=== PATIENT | male | born 1955 | race Caucasian/White ===

== ENCOUNTER 2018-06-04 11:44 | Inpatient (IN) | payer OTHER ==
[2018-06-04 13:02] VITALS: BMI 25.8
--- NOTE | 2018-06-04 16:01 | HP ---
CIWA Score - CIWA Score Nausea/Vomitin Muscle Tremors: 3 Anxiety: 3 Agitation: 3 Paroxysmal Sweats: 1-Minimal Palms Moist Orientation: 0-Oriented Tacttile Disturbances: 2-Mild Itch/Numbness/Burn Auditory Disturbances: 2-Mild Harshness/Frighten Visual Disturbances: 0-None Headache: 2-Mild CIWA-Ar Total Score: 19 Admission ROS [facility] - HPI Chief Complaint: i need help to stop drinking alcohol Allergies/Adverse Reactions: Allergies Allergy/AdvReac Type Severity Reaction Status Date / Time No Known Allergies Allergy Verified 06/04/18 15:27 History of Present Illness: this 63 years old male with alcohol dependence,seeking detox,withdrawal symptom, never been in detox before, syncope alcohol related hepatitis c treated low back pain nicotine dependence weight loss insomnia - Ebola screening Have you traveled outside of the country in the last 21 days: No Have you had contact with anyone from an Ebola affected area: No Have you been sick,other than usual withdrawal symptoms: No Do you have a fever: No - Review of Systems Constitutional: Loss of Appetite, Malaise, Night Sweats, Changes in sleep, Weakness, Unexplained wgt Loss EENT: reports: Nose Congestion Respiratory: reports: No Symptoms reported Cardiac: reports: Palpitations GI: reports: Diarrhea, Nausea, Vomiting, Abdominal cramping : reports: No Symptoms Reported Musculoskeletal: reports: Back Pain, Muscle Pain Integumentary: reports: Dryness Neuro: reports: Headache, Tremors Endocrine: reports: No Symptoms Reported Hematology: reports: No Symptoms Reported Psychiatric: reports: No Sypmtoms Reported, Judgement Intact, Mood/Affect Appropiate, Anxious (insomnia) Patient History - Patient Medical History Hx Anemia: No Hx Asthma: No Hx Chronic Obstructive Pulmonary Disease (COPD): No Hx Cancer: No Hx Cardiac Disorders: No Hx Hypertension: No Hx Pacemaker: No HX Cerebrovascular Accident: No Hx Seizures: No Hx Diabetes: No Hx Gastrointestinal Disorders: No Hx Liver Disease: No Hx Genitourinary Disorders: No Hx Sexually Transmitted Disorders: No Hx Renal Disease (ESRD): No Hx Thyroid Disease: No Hx Human Immunodeficiency Virus (HIV): No (last 2014) Hx Hepatitis C: Yes (treated) Hx Depression: No Hx Suicide Attempt: No Hx Bipolar Disorder: No Hx Schizophrenia: No Other Medical History: no suicidal,no homicidal - Patient Surgical History Past Surgical History: No - PPD History Previous Implant?: Yes Documented Results: Negative w/o proof Implanted On Prior [facility] Admission?: No PPD to be Administered?: Yes - Smoking Cessation Smoking history: Current every day smoker Have you smoked in the past 12 months: Yes Aproximately how many cigarettes per day: 20 Hx Chewing Tobacco Use: No Initiated information on smoking cessation: Yes 'Breaking Loose' booklet given: 06/04/18 - Substance & Tx. History Hx Alcohol Use: Yes Hx Substance Use: No Substance Use Type: Alcohol Hx Substance Use Treatment: No - Substances Abused Alcohol Route: Oral Frequency: Daily Amount used: 2 6pks beer Age of first use: 21 Date of Last Use: 06/04/18 Family Disease History - Family Disease History Family History: Denies Admission Physical Exam [facility] - Vital Signs Vital Signs: Vital Signs - 24 hr 06/04/18 12:47 Temperature 98.6 F Pulse Rate 99 H Respiratory 18 Rate Blood Pressure 134/77 - Physical General Appearance: Yes: Moderate Distress, Tremorous, Irritable, Sweating, Anxious HEENTM: Yes: Normocephalic, TONIE, Tm's normal Respiratory: Yes: Lungs Clear, Normal Breath Sounds, No Respiratory Distress Neck: Yes: Within Normal Limits Breast: Yes: Within Normal Limits Cardiology: Yes: Within Normal Limits, Regular Rhythm, Regular Rate, S1, S2 Abdominal: Yes: Within Normal Limits, Normal Bowel Sounds, Non Tender, Soft Genitourinary: Yes: Within Normal Limits Musculoskeletal: Yes: Back pain, Muscle Pain Extremities: Yes: Tremors Neurological: Yes: Within Normal Limits, 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, Fully Oriented, Alert, Motor Strength 5/5 Integumentary: Yes: Dry Lymphatic: Yes: Within Normal Limits - Diagnostic (1) Alcohol dependence with uncomplicated withdrawal Current Visit: Yes Status: Acute (2) Syncope Current Visit: Yes Status: Acute (3) Weight loss Current Visit: Yes Status: Acute (4) Anxiety Current Visit: Yes Status: Acute (5) Insomnia Current Visit: Yes Status: Acute (6) Hepatitis C Current Visit: Yes Status: Acute Cleared for Admission [facility] - Detox or Rehab [facility] Level of Care: Medically Managed Detox Regimen/Protocol: Librium S Breath Alcohol Content Breath Alcohol Content: 0.148 Urine Drug Screen - Results Drug Screen Negative: Yes
[2018-06-04] MEDS ORDERED: MAGNESIUM HYDROX 2400MG/30ML ORAL SUSPENSION 30 ML CUP PO PRN (16:13)
[2018-06-04] MEDS ORDERED: P-EPHED 60MG/TRIPROLIDI 2.5MG TABLET PO PRN (16:13)
[2018-06-04] MEDS ORDERED: guaiFENesin/D-METHORPHAN HB 10 ML UNIT-DOSE CUPS PO PRN (16:13)
[2018-06-04] MEDS ORDERED: MAGNESIUM CITRATE 300 ML BOTTLE PO PRN (16:13)
[2018-06-04] MEDS ORDERED: ACETAMINOPHEN 325 MG TABLET (FP) PO PRN (16:13)
[2018-06-04] MEDS ORDERED: chlordiazePOXIDE HCL 25 MG CAPSULE PO PRN (16:13)
[2018-06-04] MEDS ORDERED: hydrOXYzine PAMOATE 50 MG CAPSULE (FP) PO PRN (16:13)
[2018-06-04] MEDS ORDERED: MAG HYDROX/AL HYDROX/SIMETH 30 ML UNIT-DOSE CUP PO PRN (16:13)
[2018-06-04] MEDS ORDERED: IBUPROFEN 400 MG TABLET (FP) PO PRN (16:13)
[2018-06-04] MEDS ORDERED: LOPERAMIDE HCL 2 MG CAPSULE PO PRN (16:13)
[2018-06-04] MEDS ORDERED: MENTHOL/PHENOL 1 EACH UD MM PRN (16:13)
[2018-06-04] MEDS ORDERED: NICOTINE POLACRILEX 2 MG GUM BC PRN (16:13)
[2018-06-04] MEDS: NICOTINE 21 MG/24 HOURS TOPICAL PATCH TD SCH (17:46)
[2018-06-04] MEDS ORDERED: cloNIDine HCL 0.1 MG TABLET PO ONE (20:39)
--- NOTE | 2018-06-04 20:39 | PN ---
S Progress Note Note: RECEIVED REPORT FROM LORETA RAMSEY THAT BP IS ELEVATED. 01MG OF CLONIDINE ORDERED.
[2018-06-04] MEDS ORDERED: THIAMINE HCL 100 MG TABLET (FP) PO SCH (22:00)
[2018-06-04] MEDS ORDERED: MELATONIN 5 MG TABLETS PO PRN (22:00)
[2018-06-04] MEDS: chlordiazePOXIDE HCL 25 MG CAPSULE PO SCH (22:28)
[2018-06-05 02:09] LABS: URINE APPEARANCE CLEAR; URINE BILIRUBIN NEGATIVE (<2.0 mg/dL); URINE COLOR LTYELLOW; URINE GLUCOSE (UA) NEGATIVE (NEGATIVE); URINE KETONE NEGATIVE (NEGATIVE); URINE LEUK ESTERASE NEGATIVE (NEGATIVE); URINE NITRITE NEGATIVE (NEGATIVE); URINE PROTEIN NEGATIVE (NEGATIVE); URINE UROBILINOGEN NEGATIVE mg/dL (0.2-1.0)
[2018-06-05] MEDS: chlordiazePOXIDE HCL 25 MG CAPSULE PO SCH ×2 (05:48→10:11)
[2018-06-05] MEDS ORDERED: PRENATAL VITAMINS W/ FOLIC ACID TABLET (FP) PO SCH (10:00)
[2018-06-05] MEDS: NICOTINE 21 MG/24 HOURS TOPICAL PATCH TD SCH (10:11)
--- NOTE | 2018-06-05 10:28 | EKG ---
Test Reason : Blood Pressure : / mmHG Vent. Rate : 107 BPM Atrial Rate : 107 BPM P-R Int : 154 ms QRS Dur : 088 ms QT Int : 334 ms P-R-T Axes : 071 015 070 degrees QTc Int : 445 ms SINUS TACHYCARDIA OTHERWISE NORMAL ECG NO PREVIOUS ECGS AVAILABLE Confirmed by TANJA ALLEN, CODEY ([id number] on 06/05/2018 10:28:19 AM Referred By: Confirmed By:CODEY AGRAWAL MD
[2018-06-05 11:05] LABS: ALBUMIN 3.6 g/dl (3.4-5.0); ANION GAP 11 MMOL/L (8-16); BILIRUBIN,TOTAL 0.3 mg/dL (0.2-1.0); BLOOD UREA NITROGEN 6 mg/dL (7-18); CALCIUM 8.4 mg/dL (8.5-10.1); CHLORIDE 98 mmol/L (98-107); CO2 25 mmol/L (21-32); CREATININE 0.6 mg/dL (0.7-1.3); GLUCOSE,RANDOM 107 mg/dL (74-106); HEMOGLOBIN 12.3 GM/dL (11.7-16.9); MCH 31.4 pg (25.7-33.7); MCHC 34.1 g/dl (32.0-35.9); MEAN CELL VOLUME 92.1 fl (80-96); MEAN PLT VOLUME 7.8 fl (7.5-11.1); PLATELET COUNT 347 K/MM3 (134-434); POTASSIUM 4.2 mmol/L (3.5-5.1); RBC 3.91 M/mm3 (4.00-5.60); RDW 14.4 % (11.9-15.9); SGOT/AST 63 U/L (15-37); SGPT/ALT 126 U/L (12-78); SODIUM 134 mmol/L (136-145); TOT PROT 7.4 g/dl (6.4-8.2); WHITE BLOOD COUNT 7.9 K/mm3 (4.0-10.0)
[2018-06-05 11:06] LABS: ALK PHOS 59 U/L (45-117)
[2018-06-05 17:33] VITALS: BP 139/92; PULSE 99; TEMP 97.5
[2018-06-05] MEDS ORDERED: chlordiazePOXIDE HCL 25 MG CAPSULE PO SCH (23:00)
--- NOTE | 2018-06-06 01:20 | DS ---
[facility] Detox Discharge Summary Admission Date: 06/04/18 Discharge Date: 06/05/18 - History Present History: Alcohol Dependence Additional Comments: Admitted with alcohol withdrawal. - Physical Exam Results Vital Signs: Vital Signs Temperature 97.5 F L 06/05/18 17:32 Pulse Rate 99 H 06/05/18 17:32 Respiratory Rate 18 06/05/18 17:32 Blood Pressure 139/92 06/05/18 17:32 O2 Sat by Pulse Oximetry (%) Pertinent Admission Physical Exam Findings: Admitted with alcohol withdrawal. Laboratory Last Values WBC 7.9 K/mm3 (4.0-10.0) 06/05/18 06:00 RBC 3.91 M/mm3 (4.00-5.60) L 06/05/18 06:00 Hgb 12.3 GM/dL (11.7-16.9) 06/05/18 06:00 Hct 36.0 % (35.4-49) 06/05/18 06:00 MCV 92.1 fl (80-96) 06/05/18 06:00 MCH 31.4 pg (25.7-33.7) 06/05/18 06:00 MCHC 34.1 g/dl (32.0-35.9) 06/05/18 06:00 RDW 14.4 % (11.9-15.9) 06/05/18 06:00 Plt Count 347 K/MM3 (134-434) 06/05/18 06:00 MPV 7.8 fl (7.5-11.1) 06/05/18 06:00 Sodium 134 mmol/L (136-145) L 06/05/18 06:00 Potassium 4.2 mmol/L (3.5-5.1) 06/05/18 06:00 Chloride 98 mmol/L (98-107) 06/05/18 06:00 Carbon Dioxide 25 mmol/L (21-32) 06/05/18 06:00 Anion Gap 11 MMOL/L (8-16) 06/05/18 06:00 BUN 6 mg/dL (7-18) L 06/05/18 06:00 Creatinine 0.6 mg/dL (0.7-1.3) L 06/05/18 06:00 Creat Clearance w eGFR > 60 (>60) 06/05/18 06:00 Random Glucose 107 mg/dL (74-106) H 06/05/18 06:00 Calcium 8.4 mg/dL (8.5-10.1) L 06/05/18 06:00 Total Bilirubin 0.3 mg/dL (0.2-1.0) 06/05/18 06:00 AST 63 U/L (15-37) H 06/05/18 06:00 ALT 126 U/L (12-78) H 06/05/18 06:00 Alkaline Phosphatase 59 U/L (45-117) 06/05/18 06:00 Total Protein 7.4 g/dl (6.4-8.2) 06/05/18 06:00 Albumin 3.6 g/dl (3.4-5.0) 06/05/18 06:00 Urine Color Ltyellow 06/05/18 00:45 Urine Appearance Clear 06/05/18 00:45 Urine pH 6.0 (5.0-8.0) 06/05/18 00:45 Ur Specific Goessel 1.005 (1.001-1.035) 06/05/18 00:45 Urine Protein Negative (NEGATIVE) 06/05/18 00:45 Urine Glucose (UA) Negative (NEGATIVE) 06/05/18 00:45 Urine Ketones Negative (NEGATIVE) 06/05/18 00:45 Urine Blood Negative (NEGATIVE) 06/05/18 00:45 Urine Nitrite Negative (NEGATIVE) 06/05/18 00:45 Urine Bilirubin Negative (<2.0 mg/dL) 06/05/18 00:45 Urine Urobilinogen Negative mg/dL (0.2-1.0) 06/05/18 00:45 Ur Leukocyte Esterase Negative (NEGATIVE) 06/05/18 00:45 RPR Titer Nonreactive (NONREACTIVE) 06/05/18 06:00 HIV 1&2 Antibody Screen Negative 06/05/18 06:10 HIV P24 Antigen Negative 06/05/18 06:10 Labs reviewed. - Treatment Hospital Course: Detox Protocol Followed (Did not complete detox), Detoxed Safely, Responded well, Discharged Condition Good (Alert and oriented. Steacy gait. No signs of overt withdrawal symptoms.) - Medication Discharge Medications: Ambulatory Orders NK [No Known Home Medication] 06/04/18 - Diagnosis (1) Alcohol dependence with uncomplicated withdrawal Status: Acute - AMA Did Patient Leave Against Medical Advice: Yes
[2018-06-06] MEDS ORDERED: chlordiazePOXIDE 5 MG CAPSULE PO SCH (23:00)
[2018-06-07] MEDS ORDERED: chlordiazePOXIDE HCL 10 MG CAPSULE PO SCH (23:00)
== END 2018-06-05 17:00 | disposition left against medical advice (07) | DRG 894 ==
LOC: YASAS 11:44 → Y3N 16:00
PROC: HZ2ZZZZ Detoxification Services for Substance Abuse Treatment (ICD-10-PCS; principal; 2018-06-04)
DX: F10.230 Alcohol dependence with withdrawal, uncomplicated (principal); F41.9 Anxiety disorder, unspecified; G47.00 Insomnia, unspecified; B18.2 Chronic viral hepatitis C; R55 Syncope and collapse; M54.5 Low back pain; R63.4 Abnormal weight loss; Z68.25 Body mass index [BMI] 25.0-25.9, adult; Z59.0 Homelessness
CPT/HCPCS: 36415; 80053; 81003; 85027; 86593; 87389; 93005; 93010; J0735